=== PATIENT | female | born 1990 | race Caucasian/White ===

== ENCOUNTER 2016-08-02 15:41 | Emergency (ER) | payer OTHER ==
[~2016-08-02] VITALS: Ht 172.7 cm; Wt 123.8 kg
[~2016-08-02 15:41] MED LIST: ANTIVERT25 MG PO; APAP/CODEINE ELI5 M1 OR; FISH OIL 1,001000 M2 PO; GARLIQUE5000 MCG PO; IRON325 PO; LORATIDINE 10 M10 M1 PO; MIRALAX255 GM PO; MULTIVITAMINS1 EAC7 PO; NORCO 5-325 TA1 EACH PO; ZOLOFT 50 MG TA50 M1 PO; ZPAK PO
[2016-08-02] MEDS ORDERED: TRAZODONE HCL100 MG PO (16:01)
[2016-08-02] MEDS ORDERED: CELEXA20 MG PO (16:01)
[2016-08-02] MEDS ORDERED: TOPAMAX50 MG PO (16:01)
[2016-08-02 16:03] LABS: URINE BILIRUBIN 1+ (Negative); URINE BLOOD 3+ (Negative); URINE COLOR YELLOW; URINE GLUCOSE-RANDOM* NEGATIVE (Negative); URINE KETONES NEGATIVE (Negative); URINE LEUKOCYTES-REFLEX NEGATIVE (Negative); URINE PROTEIN (DIPSTICK) TRACE (Negative); URINE SPECIFIC GRAVITY >= 1.030 (1.003-1.035); URINE UROBILINOGEN 0.2 E.U./dl (0.2-1.0)
[2016-08-02] MEDS ORDERED: KURVELO1 EACH PO (16:03)
[2016-08-02] MEDS ORDERED: ORAL CONTRACEPTIVE (16:03)
[2016-08-02] MEDS ORDERED: BIOTIN1 M1 PO (16:07)
[2016-08-02 16:08] LABS: ICTOTEST (BILI CONFIRMATORY) Negative (Negative)
[2016-08-02 16:14] LABS: SQUAMOUS >10 Many /LPF (0-3)
[2016-08-02 16:16] LABS: CASTS None Seen /LPF (None Seen); URINE WBC-REFLEX 0-5 Rare /HPF (0-5)
[2016-08-02 16:17] LABS: CRYSTALS None Seen /LPF (None Seen); URINE RBC 0-2 Rare /HPF (0-2)
[2016-08-02] MEDS ORDERED: NAPROSYN500 MG PO (17:38)
[2016-08-02 17:46] VITALS: BP 132/45
[2016-08-03 14:11] LABS: CHLAMYDIA TRACHOMATIS-PCR Negative (Negative); NEISSERIA GONORRHEA-PCR Negative (Negative)
== END 2016-08-02 17:46 | disposition home or self-care (01) ==
LOC: ER 15:41
PROVIDERS: Physician Assistant
DX: N92.0 Excessive and frequent menstruation with regular cycle (principal); R10.2 Pelvic and perineal pain; F10.99 Alcohol use, unspecified with unspecified alcohol-induced disorder; Z87.891 Personal history of nicotine dependence; Z88.0 Allergy status to penicillin; Z88.8 Allergy status to other drugs, medicaments and biological substances; Z86.14 Personal history of Methicillin resistant Staphylococcus aureus infection

== ENCOUNTER 2018-01-09 10:19 | Emergency (ER) | payer OTHER ==
[~2018-01-09] VITALS: Ht 172.7 cm; Wt 178.3 kg
[~2018-01-09 10:19] MED LIST changes: +BIOTIN1 M1 PO; +CELEXA20 MG PO; +KURVELO1 EACH PO; +NAPROSYN500 MG PO; +ORAL CONTRACEPTIVE; +TOPAMAX50 MG PO; +TRAZODONE HCL100 MG PO
[2018-01-09] MEDS ORDERED: PREDNISONE 20 M20 MG PO (10:47)
[2018-01-09] MEDS ORDERED: TRAMADOL 50 MG50 MG PO (10:47)
[2018-01-09] MEDS ORDERED: SERTRALINE HCL50 MG PO (11:04)
[2018-01-09 11:25] VITALS: BP 124/68
== END 2018-01-09 11:26 | disposition home or self-care (01) ==
LOC: ER 10:19
DX: M54.32 Sciatica, left side (principal); J45.909 Unspecified asthma, uncomplicated; Z88.6 Allergy status to analgesic agent; Z88.0 Allergy status to penicillin; Z87.891 Personal history of nicotine dependence

== ENCOUNTER 2018-01-25 06:54 | Inpatient (IN) | payer OTHER ==
[~2018-01-25] VITALS: Ht 152.4 cm; Wt 180.1 kg
[~2018-01-25 06:54] MED LIST changes: +PREDNISONE 20 M20 MG PO; +SERTRALINE HCL50 MG PO; +TRAMADOL 50 MG50 MG PO
[2018-01-25 06:59] VITALS: BP 126/68
[2018-01-25 07:36] LABS: ABSOLUTE NEUTROPHILS 15.9 thou/uL (1.4-8.2); BASOPHILS 0.4 % (0.0-2.0); EOSINOPHILS 0.1 % (0.0-3.0); HEMATOCRIT 35.2 % (37.0-47.0); HEMOGLOBIN 11.3 gm/dL (12.0-15.0); LYMPHOCYTES 12.3 % (24.0-44.0); MCH 24.6 pg (26.0-34.0); MCHC 32.3 g/dL (28.0-37.0); MCV 76.1 fL (80.0-100.0); PLATELET COUNT 340 thou/uL (150-400); POLYS 84.2 % (36.0-66.0); RBC 4.62 mil/uL (4.20-5.00); RDW 16.3 % (10.5-14.5); WBC 18.9 thou/uL (4.0-11.0)
[2018-01-25 07:40] LABS: CALCIUM 9.3 mg/dL (8.5-10.1); CREATININE 0.7 mg/dL (0.6-1.0); POTASSIUM 4.2 mmol/L (3.5-5.1)
[2018-01-25 07:45] LABS: ALBUMIN 3.4 g/dL (3.4-5.0); TOTAL BILIRUBIN 0.2 mg/dL (<0.1-1.0); TOTAL PROTEIN 8.5 g/dL (6.4-8.2)
[2018-01-25 08:02] LABS: URINE BILIRUBIN NEGATIVE (Negative); URINE BLOOD NEGATIVE (Negative); URINE COLOR YELLOW; URINE GLUCOSE-RANDOM* NEGATIVE (Negative); URINE KETONES NEGATIVE (Negative); URINE LEUKOCYTES-REFLEX NEGATIVE (Negative); URINE NITRITE-REFLEX NEGATIVE (Negative); URINE PROTEIN (DIPSTICK) NEGATIVE (Negative); URINE UROBILINOGEN 0.2 E.U./dl (0.2-1.0)
[2018-01-25 08:07] LABS: URINE CLARITY SL HAZY
[2018-01-25 08:19] LABS: AMP/METHAMP Negative (Negative); BARBITURATES Negative (Negative); BENZODIAZEPINES POSITIVE (Negative); COCAINE Negative (Negative); METHADONE Negative (Negative); OPIATES Negative (Negative); PCP Negative (Negative)
[2018-01-25 09:15] VITALS: BP 126/68
[2018-01-25 09:36] VITALS: BP 118/64
[2018-01-25 09:38] VITALS: BP 126/68
[2018-01-25 15:43] VITALS: BP 110/78
[2018-01-25 16:56] LABS: CASTS None Seen /LPF (None Seen); MUCUS 0-3 Light strn/LPF (None Seen); SQUAMOUS 4-10 Moderate /LPF (0-3); URINE RBC 0-2 Rare /HPF (0-2); URINE WBC-REFLEX 0-5 Rare /HPF (0-5)
[2018-01-25 16:57] LABS: BACTERIA-REFLEX None Seen /HPF (None Seen); CRYSTALS None Seen /LPF (None Seen)
[2018-01-25 20:01] VITALS: BP 111/56
[2018-01-26 04:06] VITALS: BP 120/70
[2018-01-26 07:30] VITALS: BP 105/64
[2018-01-26 07:58] LABS: HEMATOCRIT 31.8 % (37.0-47.0); HEMOGLOBIN 10.3 gm/dL (12.0-15.0); MCH 24.7 pg (26.0-34.0); MCHC 32.4 g/dL (28.0-37.0); MCV 76.3 fL (80.0-100.0); RBC 4.17 mil/uL (4.20-5.00); RDW 16.1 % (10.5-14.5); WBC 10.9 thou/uL (4.0-11.0)
[2018-01-26 08:07] LABS: CALCIUM 8.7 mg/dL (8.5-10.1); CREATININE 0.6 mg/dL (0.6-1.0); POTASSIUM 3.7 mmol/L (3.5-5.1)
[2018-01-26 19:51] VITALS: BP 109/59
[2018-01-27 04:09] VITALS: BP 115/72
[2018-01-27 07:57] VITALS: BP 113/51
[2018-01-27] MEDS ORDERED: TOPAMAX 100 MG100 MG PO (09:20)
[2018-01-27 11:53] VITALS: BP 113/51
[2018-01-27 11:58] VITALS: BP 113/51
== END 2018-01-27 12:55 | disposition home or self-care (01) | DRG 101 ==
LOC: ER 06:54 → 4E 08:35 → EROBS 08:35 → 4E 09:30
PROVIDERS: Emergency Medicine; Hospitalist
DX: G40.909 Epilepsy, unspecified, not intractable, without status epilepticus (principal); J45.909 Unspecified asthma, uncomplicated; D50.9 Iron deficiency anemia, unspecified; D72.829 Elevated white blood cell count, unspecified; Z79.899 Other long term (current) drug therapy; Z88.6 Allergy status to analgesic agent; Z88.0 Allergy status to penicillin; Z87.891 Personal history of nicotine dependence
CPT/HCPCS: 10084